=== PATIENT | male | born 1950 | race Caucasian/White ===

== ENCOUNTER → 2019-01-06 12:42 | Outpatient (CLI) | payer MEDICARE, OTHER, SELFPAY ==
--- NOTE | 2019-01-06 | DI.MRI.S_ITS ---
PROCEDURE: MR CERVICAL SPINE WO CON INDICATIONS: RADICUOPATHY TECHNIQUE: Noncontrast sagittal T1 spin echo and T2 fast spin echo, sagittal STIR, foraminal oblique sagittal T2 fast spin echo, and axial gradient echo or T2 fast spin echo through the cervical spine. COMPARISON: None. FINDINGS: Image quality: Excellent. Alignment and Curvature: There is trace anterolisthesis of C4 on C5 and trace retrolisthesis of C6 on C7. Bone Marrow: Marrow demonstrates normal overall signal. Spinal Cord: Visualized spinal cord has normal size and signal. No cerebellar tonsillar herniation. Paraspinous Soft Tissues: No paravertebral masses. Prevertebral soft tissues are normal in thickness. Discs: Moderate desiccation is present throughout the cervical spine. C2-C3: No disc bulge or spinal stenosis. Minimal to mild left foraminal narrowing with uncovertebral hypertrophy. C3-C4: Mild disc bulge with mild spinal stenosis. Moderate to severe bilateral foraminal narrowing with uncovertebral hypertrophy. C4-C5: Mild disc bulge without spinal stenosis. Mild bilateral foraminal narrowing with uncovertebral hypertrophy. C5-C6: Mild disc bulge minimal effacement of the anterior thecal sac. Mild bilateral foraminal narrowing, left greater than right with uncovertebral hypertrophy. C6-C7: Mild disc bulge with minimal effacement of the anterior thecal sac. Moderate right and mild left foraminal narrowing with uncovertebral hypertrophy. C7-T1: No disc bulge or spinal stenosis. Minimal right foraminal narrowing. IMPRESSION: 1. Multilevel disc bulges. 2. Multilevel foraminal narrowing most severe at C3-4 and C6-7 secondary to uncovertebral arthropathy. Dictated by: Catarina Peña M.D. on 01/08/2019 at 10:55 Approved by: Catarina Peña M.D. on 01/08/2019 at 11:25
== END ==
PROVIDERS: Visit Provider Physical Medicine & Rehabilitation
DX: M50.11 Cervical disc disorder with radiculopathy, high cervical region (principal); M48.02 Spinal stenosis, cervical region; M47.22 Other spondylosis with radiculopathy, cervical region
CPT/HCPCS: 72141

== ENCOUNTER → 2019-04-27 12:03 | Outpatient (CLI) | payer MEDICARE, OTHER, SELFPAY ==
--- NOTE | 2019-04-27 | DI.MRI.S_ITS ---
PROCEDURE: MR SHOULDER LT WO CON INDICATIONS: Pain in left shoulder TECHNIQUE: Noncontrast oblique coronal T2 fast spin echo with fat saturation, oblique sagittal T1 spin echo and T2 fast spin echo with fat saturation, axial T1 spin echo and T2 fast spin echo with fat saturation through the shoulder. COMPARISON: [facility] [place], CR, XR SHOULDER 2+ VIEWS LEFT, 04/10/2019, 15:06. FINDINGS: Image quality: Excellent. Rotator cuff: The supraspinatus, infraspinatus, and subscapularis tendons appear intact throughout but there is elevated fluid signal and mild irregularity along the articular surface of the lateral third of the supraspinatus rotator cuff. This is also associated with fibrous and osseous hypertrophy from the degenerated a.c. joint impinging directly against the normal course of the supraspinatus cuff. Sagittal images demonstrate no muscle atrophy. Bones and bursae: No bone marrow contusions or fractures. There is moderately severe acromioclavicular joint degeneration combining with inferior tilt of the lateral acromion to narrow the interspace through which the supraspinatus extends. Elevated fluid signal within the supraspinatus cuff at the site indicates chronic impingement The acromion demonstrates conventional anatomy, without an os acromiale. No pathologic subacromial-subdeltoid or subcoracoid bursal fluid is present. Capsule and soft tissues: In the absence of intra-articular contrast, the labrum and glenohumeral ligaments appear intact. The long head of the biceps tendon demonstrates normal location and morphology. The rotator interval appears normal, without fibrosis. The coracohumeral ligament is normal in thickness. IMPRESSION: A full-thickness rotator cuff tear is not known but a articular surface supraspinatus partial thickness tear appears present given the focal irregularity and elevated fluid signal immediately above the superior margin of the humeral head in the area of maximal chronic impingement by acromioclavicular joint degenerative hypertrophy and normal variant inferior tilt of the lateral acromion. No prior trauma found. The study is performed without intra-articular contrast but within the constraints of the current examination a labral tear is not suspected. Dictated by: Kody Butt M.D. on 04/27/2019 at 16:42 Approved by: Kody Butt M.D. on 04/27/2019 at 16:46
== END ==
PROVIDERS: Referring Provider Orthopaedic Surgery; Visit Provider Orthopaedic Surgery
DX: M25.512 Pain in left shoulder (principal); M75.112 Incomplete rotator cuff tear or rupture of left shoulder, not specified as traumatic
CPT/HCPCS: 73221

== ENCOUNTER → 2019-08-12 13:29 | Outpatient (CLI) | payer MEDICARE, OTHER, SELFPAY ==
[2019-08-13 03:49] LABS: COVID19 Sendout Not Detected (Not Detect)
== END ==
PROVIDERS: Visit Provider Physician Assistant
DX: Z01.812 Encounter for preprocedural laboratory examination (principal)
CPT/HCPCS: 87635

== ENCOUNTER 2020-12-18 11:40 | Emergency (ER) | payer MEDICARE, OTHER, SELFPAY ==
[2020-12-18] VITALS (14 sets, daily range): BP systolic 138–196; BP diastolic 77–94; PULSE 51–68; RESP 12–59; TEMP 36.9; O2SAT 92–99; BMI 28.1
[2020-12-18 12:39] LABS: Bacteria Urine None Seen; Culture Indicated Urine Cult Not Indicated; RBC Urine 5-10/HPF (0-5/HPF); Squamous Epithelial Cell Urine 0-1 /HPF (0-5/HPF); WBC Urine 0-1/HPF (0-5/HPF)
[2020-12-18 12:41] LABS: Add Manual Diff / Slide Review NO; Basophils Absolute Auto 100 /uL (0-100); Basophils Percent Auto 0.5 % (0-2); Eosinophils Absolute Auto 400 /uL (0-450); Eosinophils Percent Auto 3.2 % (2-4); Hematocrit 42.5 % (41-53); Lymphocytes Absolute Auto 4000 /uL (1100-4500); Lymphocytes Percent Auto 30.7 % (25-40); Mean Corpuscular Hemoglobin 29.2 PG (26-34); Mean Corpuscular Volume 88.5 fL (80-100); Monocytes Absolute Auto 700 /uL (0-900); Monocytes Percent Auto 5.5 % (3-14); Neutrophils Absolute Auto 7900 /uL (1500-7000); Neutrophils Percent Auto 60.1 % (50-75); Platelet Count 274 X10^3/uL (150-400); Red Cell Distribution Width 14.1 % (11.6-14.8); White Blood Cell Count 13.1 X10^3/uL (4.5-11.0)
--- NOTE | 2020-12-18 12:45 | DI.CT.S_ITS ---
PROCEDURE: CT ABDOMEN PELVIS W CON INDICATIONS: Acute onset LLQ pain c/f acute abdomen/diverticulitis TECHNIQUE: After the administration of oral and IV contrast, axial sections were acquired from the lung bases to the pubic symphysis. Coronal and sagittal reformats were performed. For radiation dose reduction, the following was used: automated exposure control, adjustment of mA and/or kV according to patient size. COMPARISON: None. FINDINGS: Image quality: Excellent. Lung bases: No pleural effusion. Bibasilar atelectasis. Heart: No significant findings. ABDOMEN: Liver: Hepatic steatosis. Gallbladder: No calcified gallstones. Biliary ducts: Unremarkable. Pancreas: No peripancreatic fluid collection. Spleen: No splenomegaly. Adrenal Glands: No nodule. Kidneys and Ureters: Right kidney inferior pole nonobstructing calculus measuring 0.5 cm. Punctate nonobstructing calculus in the left kidney. Mild left hydroureter compared to the right. Left renal calices are mildly prominent compared to the right. No right hydronephrosis. Bilateral simple appearing renal cysts. Stomach and Bowel: Stomach is not distended. Small duodenal diverticulum. No small bowel obstruction. Diverticulosis. Very subtle fat stranding at the sigmoid colon, (4/31). The appendix is not identified. Peritoneum: No abnormal intraperitoneal fluid. No free air. Ventral Wall: No hernia. Abdominal Nodes: No retroperitoneal or mesenteric adenopathy by size criteria. Vessels: Aorta and inferior vena cava are normal in size. PELVIS: Pelvic Organs: Prostatomegaly. Vasectomy clips. Bladder: Stone in the urinary bladder near the left UVJ measuring 0.3 cm, (2/81). Pelvic Nodes: No enlarged lymph nodes. Miscellaneous: No inguinal hernias are seen. Bones: Unremarkable. IMPRESSION: 1. There is a kidney stone at the left UVJ passing into the urinary bladder measuring 0.3 cm. Mild left hydroureter. This is favored as the source of abdominal pain. 2. Diverticulosis with subtle stranding near the sigmoid colon raises the possibility of early or mild diverticulosis. 3. Additional bilateral nonobstructing kidney stones. Comment: Findings were discussed with Dr. Maurer at the time of dictation. Dictated by: Frank Nelson M.D. on 12/18/2020 at 13:48 Approved by: Frank Nelson M.D. on 12/18/2020 at 14:01
--- NOTE | 2020-12-18 12:49 | ED_ITS ---
HPI - Abdominal Pain <PARAG Trimble - Last Filed: 12/18/20 20:44> General Chief Complaint: Abdominal Pain Stated Complaint: left side abd pain Time Seen by Provider: 12/18/20 12:38 Source: patient Mode of arrival: Family Vehicle Limitations: no limitations History of Present Illness HPI narrative: 70-year-old male with history hypertension, PAUL, and hypercholesterolemia presents to the emergency department today for acute onset of lower left quadrant pain with spasms. He states this is the 1st time this has happened, he has no history of any abdominal surgeries, he denies nausea or vomiting, he reports usually he has 3-4 numbed bowel movements each day today, he will only have 1, he says that his pain is worst when he is straining up to a 10/10, when the spasm resolves it goes down to a 5/10. He denies any recent fever, diarrhea, he states he feels constipated, and that the pain is worse if you push on that area, he denies any radiation of the pain to elsewhere. He d enies any chest pain, back pain, tearing sensation, dizziness, shortness of breath or feeling faint. He denies any dysuria or urinary retention. He reports that he ate [employer] balls last night for dinner. He denies any history of cardiac disease, and he is not a smoker Related Data Home Medications Medication Instructions Recorded Confirmed ASPIRIN (Aspirin Low Dose) 81 mg PO Q DAY #0 02/06/10 MULTIVITAMIN (Multivitamin 1 cap PO EVERY DAY #0 02/06/10 -) Simvastatin (Zocor) 20 mg PO HS #0 02/06/10 Ascorbic Acid/Bioflavonoid 1 tab PO QDAY #0 10/23/10 (#VITAMIN C) [VITAMIN E] 1 tab PO QDAY #0 10/23/10 allopurinol 300 mg tablet 300 mg PO QDAY #30 tab 10/22/15 amlodipine 5 mg tablet (Norvasc) 5 mg PO QDAY #0 tab 10/22/15 diphenhydramine 25 1 tab PO HSP PRN #0 tab 10/22/15 mg-acetaminophen 500 mg tablet (Tylenol PM Extra Strength) docusate sodium 250 mg capsule 250 mg PO BID #0 cap 10/22/15 hydrochlorothiazide 25 mg tablet 25 mg PO QDAY #0 tab 10/22/15 ibuprofen 800 mg tablet 800 mg PO PRN PRN #0 10/22/15 Previous Rx's Medication Instructions Recorded Flomax 0.4 mg capsule (tamsulosin) 0.4 mg PO DAILY #10 cap NS 12/18/20 ciprofloxacin HCl 500 mg tablet 500 mg PO BID 10 Days #20 tab 12/18/20 (Cipro) metronidazole 500 mg tablet 500 mg PO TID 10 Days #30 tab 12/18/20 (Flagyl) oxycodone-acetaminophen 5 mg-325 1 tab PO TID PRN #14 tab 12/18/20 mg tablet (Percocet) Allergies Allergy/AdvReac Type Severity Reaction Status Date / Time No Known Drug Allergies Allergy Verified 12/18/20 12:51 Review of Systems <PARAG Trimble - Last Filed: 12/18/20 20:44> Review of Systems Narrative: General: denies fever, chills Head/Neck: denies headache, neck pain Eyes: denies visual changes, eye pain Cardio: denies chest pain, palpitations Respiratory: denies shortness of breath, cough GI: Endorses lower left quadrant abdominal pain with spasms, he denies nausea, vomiting, or diarrhea, states he feels constipated : denies dysuria, hematuria MSK: denies joint pain, muscle weakness Skin: denies rash, itching Neuro: denies numbness, tingling Patient History <PARAG Trimble - Last Filed: 12/18/20 20:44> Surgical History History of knee replacement Social History Smoking Status: Former smoker Smoking Status: Former smoker tobacco type: cigarettes alcohol intake frequency: 0-2 drinks per day Substance Use Type: does not use Exam <PARAG Trimble - Last Filed: 12/18/20 20:44> Narrative Exam Narrative: Independently reviewed vitals signs and nursing notes. General: Awake, alert, nontoxic, no cardiorespiratory distress Head/Neck: Atraumatic, neck full range of motion Eyes: EOMI, conjunctiva normal Nose: nares patent, no rhinorrhea Mouth/Throat: moist mucus membranes, posterior pharynx normal, no oral lesions Cardio: Regular rate and rhythm, no peripheral edema Respiratory: respirations unlabored without wheezing, stridor, or rales. No retr actions. GI: Abdomen guarded, but tenderness to palpation over lower left quadrant, no masses palpated. MSK: Moves all extremities, neurovascularly intact Skin: Normal capillary refill, no rash Neuro: Normal speech and cognition, normal gait Initial Vital Signs Initial Vital Signs: Vital Signs Pulse Rate 54 L 12/18/20 12:05 Pulse Oximetry 96 12/18/20 12:05 <Maru Mckeon MD - Last Filed: 12/19/20 07:39> Initial Vital Signs Initial Vital Signs: Vital Signs Pulse Rate 54 L 12/18/20 12:05 Pulse Oximetry 96 12/18/20 12:05 Course <PARAG Trimble - Last Filed: 12/18/20 20:44> Orders Ordered: Discontinued Medications Hydromorphone HCl (Hydromorphone 0.5 Mg Inj) 0.5 mg IV NOW ONE Stop: 12/18/20 12:45 Last Admin: 12/18/20 13:02 Dose: 0.5 mg Documented by: RADAMES Hydromorphone HCl (Hydromorphone 0.5 Mg Inj) 0.5 mg IV NOW ONE Stop: 12/18/20 13:44 Last Admin: 12/18/20 13:47 Dose: 0.5 mg Documented by: RADAMES Hydromorphone HCl (Hydromorphone 0.5 Mg Inj) 0.5 mg IV PRN PRN PRN Reason: Pain, Severe (7-10) Sodium Chloride (Normal Saline 0.9%) 1,000 mls @ 150 mls/hr IV CONT OLEGARIO Last Infusion: 12/18/20 15:56 Dose: 0 mls/hr Documented by: Admin: 12/18/20 13:02 Dose: 150 mls/hr Documented by: RADAMES Ondansetron HCl (Ondansetron 4 Mg/2 Ml Inj) 4 mg IV NOW ONE Stop: 12/18/20 13:10 Last Admin: 12/18/20 13:13 Dose: 4 mg Documented by: RADAMES Vital Signs Vital signs: Vital Signs - 8 hr 12/18/20 13:06 12/18/20 13:07 12/18/20 13:30 Pulse Rate 51 L 51 L 53 L Respiratory Rate 13 Blood Pressure 160/77 H 155/80 H Pulse Oximetry 98 97 96 12/18/20 13:51 12/18/20 13:52 12/18/20 14:00 Pulse Rate 62 57 L 68 Respiratory Rate 24 27 H 21 Blood Pressure 196/94 H 171/88 H Pulse Oximetry 99 98 92 12/18/20 14:30 12/18/20 15:00 12/18/20 15:56 Pulse Rate 55 L 54 L Respiratory Rate 14 59 H Blood Pressure 147/84 H 138/77 151/81 H Pulse Oximetry 99 95 97 <Maru Mckeon MD - Last Filed: 12/19/20 07:39> Orders Ordered: Discontinued Medications Hydromorphone HCl (Hydromorphone 0.5 Mg Inj) 0.5 mg IV NOW ONE Stop: 12/18/20 12:45 Last Admin: 12/18/20 13:02 Dose: 0.5 mg Documented by: RADAMES Hydromorphone HCl (Hydromorphone 0.5 Mg Inj) 0.5 mg IV NOW ONE Stop: 12/18/20 13:44 Last Admin: 12/18/20 13:47 Dose: 0.5 mg Documented by: RADAMES Hydromorphone HCl (Hydromorphone 0.5 Mg Inj) 0.5 mg IV PRN PRN PRN Reason: Pain, Severe (7-10) Sodium Chloride (Normal Saline 0.9%) 1,000 mls @ 150 mls/hr IV CONT OLEGARIO Last Infusion: 12/18/20 15:56 Dose: 0 mls/hr Documented by: Admin: 12/18/20 13:02 Dose: 150 mls/hr Documented by: RADAMES Ondansetron HCl (Ondansetron 4 Mg/2 Ml Inj) 4 mg IV NOW ONE Stop: 12/18/20 13:10 Last Admin: 12/18/20 13:13 Dose: 4 mg Documented by: RADAMES Vital Signs Vital signs: Vital Signs - 8 hr 12/18/20 13:06 12/18/20 13:07 12/18/20 13:30 Pulse Rate 51 L 51 L 53 L Respiratory Rate 13 Blood Pressure 160/77 H 155/80 H Pulse Oximetry 98 97 96 12/18/20 13:51 12/18/20 13:52 12/18/20 14:00 Pulse Rate 62 57 L 68 Respiratory Rate 24 27 H 21 Blood Pressure 196/94 H 171/88 H Pulse Oximetry 99 98 92 12/18/20 14:30 12/18/20 15:00 12/18/20 15:56 Pulse Rate 55 L 54 L Respiratory Rate 14 59 H Blood Pressure 147/84 H 138/77 151/81 H Pulse Oximetry 99 95 97 MDM - Abdominal Pain <KRUPA TrimbleP - Last Filed: 12/18/20 20:44> Lab Data Result diagrams: 12/18/20 12:33 12/18/20 12:33 Labs: Lab Results 12/18/20 12/18/20 12/18/20 Range/Units 12:17 12:33 12:33 WBC 13.1 H (4.5-11.0) X10^3/uL RBC 4.80 (4.5-5.9) X10^6/uL Hgb 14.0 (13.5-17.5) g/dL Hct 42.5 (41-53) % MCV 88.5 (80-100) fL MCH 29.2 (26-34) PG MCHC 33.0 (30-36) % RDW 14.1 (11.6-14.8) % Plt Count 274 (150-400) X10^3/uL Neut % (Auto) 60.1 (50-75) % Lymph % (Auto) 30.7 (25-40) % [place] % (Auto) 5.5 (3-14) % Eos % (Auto) 3.2 (2-4) % Baso % (Auto) 0.5 (0-2) % Neut # (Auto) 7900 H (6534-1834) /uL Lymph # (Auto) 4000 (0813-2752) /uL [place] # (Auto) 700 (0-900) /uL Eos # (Auto) 400 (0-450) /uL Baso # (Auto) 100 (0-100) /uL Sodium 139 (137-145) mmol/L Potassium 4.0 (3.4-5.1) mmol/L Chloride 101 (98-107) mmol/L Carbon Dioxide 31 (22-32) mmol/L BUN 22 H (9-20) mg/dL Creatinine 0.82 (0.66-1.25) mg/dL Estimated GFR > 60.0 (>60) mL/min BUN/Creatinine Ratio 26.8 H (6-22) Glucose 136 H (80-110) mg/dL Lactate (0.7-2.1) mmol/L Calcium 9.2 (8.4-10.2) mg/dL Total Bilirubin 0.8 (0.2-1.3) mg/dL AST 29 (17-59) IU/L ALT 21 (<50) IU/L Alkaline Phosphatase 72 (38-126) U/L Total Creatine Kinase (55-170) U/L CK-MB (CK-2) CK-MB (CK-2) Rel Index Troponin I (0.01-0.034) ng/mL Total Protein 7.7 (6.3-8.2) g/dL Albumin 4.2 (3.5-5.0) g/dL Globulin 3.5 (1.7-4.1) g/dL Albumin/Globulin Ratio 1.2 (1.0-2.8) Lipase 106 (23-300) U/L Urine RBC 5-10/hpf H (0-5/HPF) Urine WBC 0-1/hpf (0-5/HPF) Ur Squamous Epith Cells 0-1 /hpf (0-5/HPF) Urine Bacteria None seen (None) Ur Culture Indicated? Cult not indicated 12/18/20 12/18/20 Range/Units 12:33 12:45 WBC (4.5-11.0) X10^3/uL RBC (4.5-5.9) X10^6/uL Hgb (13.5-17.5) g/dL Hct (41-53) % MCV (80-100) fL MCH (26-34) PG MCHC (30-36) % RDW (11.6-14.8) % Plt Count (150-400) X10^3/uL Neut % (Auto) (50-75) % Lymph % (Auto) (25-40) % [place] % (Auto) (3-14) % Eos % (Auto) (2-4) % Baso % (Auto) (0-2) % Neut # (Auto) (6146-2303) /uL Lymph # (Auto) (5914-3743) /uL [place] # (Auto) (0-900) /uL Eos # (Auto) (0-450) /uL Baso # (Auto) (0-100) /uL Sodium (137-145) mmol/L Potassium (3.4-5.1) mmol/L Chloride (98-107) mmol/L Carbon Dioxide (22-32) mmol/L BUN (9-20) mg/dL Creatinine (0.66-1.25) mg/dL Estimated GFR (>60) mL/min BUN/Creatinine Ratio (6-22) Glucose (80-110) mg/dL Lactate 1.4 (0.7-2.1) mmol/L Calcium (8.4-10.2) mg/dL Total Bilirubin (0.2-1.3) mg/dL AST (17-59) IU/L ALT (<50) IU/L Alkaline Phosphatase (38-126) U/L Total Creatine Kinase 52 L (55-170) U/L CK-MB (CK-2) TNP CK-MB (CK-2) Rel Index TNP Troponin I < 0.012 (0.01-0.034) ng/mL Total Protein (6.3-8.2) g/dL Albumin (3.5-5.0) g/dL Globulin (1.7-4.1) g/dL Albumin/Globulin Ratio (1.0-2.8) Lipase (23-300) U/L Urine RBC (0-5/HPF) Urine WBC (0-5/HPF) Ur Squamous Epith Cells (0-5/HPF) Urine Bacteria (None) Ur Culture Indicated? Point of care testing: Urine Dip Bedside Urine Glucose Negative Bedside Urine Bilirubin + 1 Bedside Urine Ketone - Negative Urine Specific Coleman 1.030 Bedside Urine Occult Blood +++ Bedside Urine pH 6.0 Bedside Urine Protein + 30 Bedside Urine Urobilinogen - Negative Bedside Urine Nitrite - Negative Bedside Urine Leukocytes - Negative Esterase Imaging Data CT scan - abdomen/pelvis: Radiologist's Impression: PROCEDURE:? CT ABDOMEN PELVIS W CON ? INDICATIONS:? Acute onset LLQ pain c/f acute abdomen/diverticulitis ? TECHNIQUE:? After the administration of oral and IV contrast, axial sections were acquired from the lung bases to the pubic symphysis.? Coronal and sagittal reformats were performed.? For radiation dose reduction, the following was used:? automated exposure control, adjustment of mA and/or kV according to patient size. ? COMPARISON:? None. ? FINDINGS:? Image quality:? Excellent.? ? Lung bases:? No pleural effusion.? Bibasilar atelectasis.? ? Heart:? No significant findings. ? ? ABDOMEN: Liver:? Hepatic steatosis.? ? Gallbladder:? No calcified gallstones. Biliary ducts:? Unremarkable.? ? Pancreas:? No peripancreatic fluid collection.? ? Spleen:? No splenomegaly.? ? Adrenal Glands:? No nodule.? ? Kidneys and Ureters:? Right kidney inferior pole nonobstructing calculus measuring 0.5 cm.? Punctate nonobstructing calculus in the left kidney.? Mild left hydroureter compared to the right.? Left renal calices are mildly prominent compared to the right.? No right hydronephrosis.? Bilateral simple appearing renal cysts.? ? ? Stomach and Bowel:? Stomach is not distended.? Small duodenal diverticulum.? No small bowel obstruction.? Diverticulosis.? Very subtle fat stranding at the sigmoid colon, ().? The appendix is not identified. Peritoneum:? No abnormal intraperitoneal fluid.? No free air.? ? Ventral Wall: ? No hernia.? Abdominal Nodes:? No retroperitoneal or mesenteric adenopathy by size criteria.? Vessels:? Aorta and inferior vena cava are normal in size.? ? PELVIS: Pelvic Organs:? Prostatomegaly.? Vasectomy clips.? ? Bladder:? Stone in the urinary bladder near the left UVJ measuring 0.3 cm, (). Pelvic Nodes: No enlarged lymph nodes.? Miscellaneous: No inguinal hernias are seen. ? ? ? Bones:? Unremarkable.? IMPRESSION:? 1. There is a kidney stone at the left UVJ passing into the urinary bladder measuring 0.3 cm.? Mild left hydroureter.? This is favored as the source of abdominal pain.? ? 2. Diverticulosis with subtle stranding near the sigmoid colon raises the possibility of early or mild diverticulosis. ? 3. Additional bilateral nonobstructing kidney stones. ? Comment: Findings were discussed with Dr. Maurer at the time of dictation. [facility] Narrative Medical decision making narrative: 70-year-old male presents to the emergency de partment for lower left quadrant pain that came on sharp and sudden driving in his car today. He is afebrile, has not had abdominal pain recently, denies any dysuria, no melena, endorses constipation this morning. He appeared to be in very significant pain, which was relieved with some dilaudid, CT abdomen pelvis showed a 3 mm kidney stone at the left UVJ passing into the urinary bladder with mild associated left hydroureter. Second diagnosis of mild diverticulosis with subtle stranding viewed near the sigmoid colon suggesting mild diverticulitis. He does have additional bilateral nonobstructing kidney stones. Lab work pertinent for WBC of 13.1, with RBCs present in his UA. Troponin was negative, 12 lead was normal sinus rhythm without ST changes. Patient came back from CT with 10/10 pain and was screaming. This was most likely his kidney stone passing out of the UVJ and into the bladder. He received 2 more doses of Dilaudid with relief. He was discharged on Flomax, Ciprofloxacin, Flagyl, and Percocet for pain. He appeared much more comfortable, received 1 L of IV fluids, and was able to ambulate at discharge. Differential includes pyelonephritis, infected kidney stone, and prostatitis. He is appropriate and amenable to discharge home. Vital signs are stable on repeat examination is unremarkable. Patient has been informed of results. Patient has been given strict return to ER precautions for any new or worsening symptoms. Patient understands to follow up closely with outpatient providers as instructed. Patient understands plan and agrees to discharge home. All questions and concerns answered at this time. <Maru Mckeon MD - Last Filed: 12/19/20 07:39> Lab Data Labs: Lab Results 12/18/20 12/18/20 12/18/20 Range/Units 12:17 12:33 12:33 WBC 13.1 H (4.5-11.0) X10^3/uL RBC 4.80 (4.5-5.9) X10^6/uL Hgb 14.0 (13.5-17.5) g/dL Hct 42.5 (41-53) % MCV 88.5 (80-100) fL MCH 29.2 (26-34) PG MCHC 33.0 (30-36) % RDW 14.1 (11.6-14.8) % Plt Count 274 (150-400) X10^3/uL Neut % (Auto) 60.1 (50-75) % Lymph % (Auto) 30.7 (25-40) % [place] % (Auto) 5.5 (3-14) % Eos % (Auto) 3.2 (2-4) % Baso % (Auto) 0.5 (0-2) % Neut # (Auto) 7900 H (5635-3123) /uL Lymph # (Auto) 4000 (8479-1051) /uL [place] # (Auto) 700 (0-900) /uL Eos # (Auto) 400 (0-450) /uL Baso # (Auto) 100 (0-100) /uL Sodium 139 (137-145) mmol/L Potassium 4.0 (3.4-5.1) mmol/L Chloride 101 (98-107) mmol/L Carbon Dioxide 31 (22-32) mmol/L BUN 22 H (9-20) mg/dL Creatinine 0.82 (0.66-1.25) mg/dL Estimated GFR > 60.0 (>60) mL/min BUN/Creatinine Ratio 26.8 H (6-22) Glucose 136 H (80-110) mg/dL Lactate (0.7-2.1) mmol/L Calcium 9.2 (8.4-10.2) mg/dL Total Bilirubin 0.8 (0.2-1.3) mg/dL AST 29 (17-59) IU/L ALT 21 (<50) IU/L Alkaline Phosphatase 72 (38-126) U/L Total Creatine Kinase (55-170) U/L CK-MB (CK-2) CK-MB (CK-2) Rel Index Troponin I (0.01-0.034) ng/mL Total Protein 7.7 (6.3-8.2) g/dL Albumin 4.2 (3.5-5.0) g/dL Globulin 3.5 (1.7-4.1) g/dL Albumin/Globulin Ratio 1.2 (1.0-2.8) Lipase 106 (23-300) U/L Urine RBC 5-10/hpf H (0-5/HPF) Urine WBC 0-1/hpf (0-5/HPF) Ur Squamous Epith Cells 0-1 /hpf (0-5/HPF) Urine Bacteria None seen (None) Ur Culture Indicated? Cult not indicated 12/18/20 12/18/20 Range/Units 12:33 12:45 WBC (4.5-11.0) X10^3/uL RBC (4.5-5.9) X10^6/uL Hgb (13.5-17.5) g/dL Hct (41-53) % MCV (80-100) fL MCH (26-34) PG MCHC (30-36) % RDW (11.6-14.8) % Plt Count (150-400) X10^3/uL Neut % (Auto) (50-75) % Lymph % (Auto) (25-40) % [place] % (Auto) (3-14) % Eos % (Auto) (2-4) % Baso % (Auto) (0-2) % Neut # (Auto) (6614-6312) /uL Lymph # (Auto) (7870-2546) /uL [place] # (Auto) (0-900) /uL Eos # (Auto) (0-450) /uL Baso # (Auto) (0-100) /uL Sodium (137-145) mmol/L Potassium (3.4-5.1) mmol/L Chloride (98-107) mmol/L Carbon Dioxide (22-32) mmol/L BUN (9-20) mg/dL Creatinine (0.66-1.25) mg/dL Estimated GFR (>60) mL/min BUN/Creatinine Ratio (6-22) Glucose (80-110) mg/dL Lactate 1.4 (0.7-2.1) mmol/L Calcium (8.4-10.2) mg/dL Total Bilirubin (0.2-1.3) mg/dL AST (17-59) IU/L ALT (<50) IU/L Alkaline Phosphatase (38-126) U/L Total Creatine Kinase 52 L (55-170) U/L CK-MB (CK-2) TNP CK-MB (CK-2) Rel Index TNP Troponin I < 0.012 (0.01-0.034) ng/mL Total Protein (6.3-8.2) g/dL Albumin (3.5-5.0) g/dL Globulin (1.7-4.1) g/dL Albumin/Globulin Ratio (1.0-2.8) Lipase (23-300) U/L Urine RBC (0-5/HPF) Urine WBC (0-5/HPF) Ur Squamous Epith Cells (0-5/HPF) Urine Bacteria (None) Ur Culture Indicated? Point of care testing: Urine Dip Bedside Urine Glucose Negative Bedside Urine Bilirubin + 1 Bedside Urine Ketone - Negative Urine Specific [place] 1.030 Bedside Urine Occult Blood +++ Bedside Urine pH 6.0 Bedside Urine Protein + 30 Bedside Urine Urobilinogen - Negative Bedside Urine Nitrite - Negative Bedside Urine Leukocytes - Negative Esterase Discharge Plan Departure Patient Disposition: Home Clinical Impression: Diverticulitis, Calculus of kidney Instructions: DI for Kidney Stones, DI for Diverticulitis Activity Restrictions/Additional Instructions: *You have been diagnosed with a left sided kidney stone, and mild diverticulitis. Please see below these instructions diet options for diverticul itis and kidney stones to help prevent this from happening in the future. Please take these medications as prescribed, please return to the emergency department if you develop any new or worsening symptoms, fever, pain that you cannot manage at. Please follow-up with your primary care provider in 1 week for follow-up, I will send this information over to Daria Lal and hopefully she can access it. *What to do: *Please continue to take your regular medications as directed. [x ] New medication prescriptions sent to your pharmacy: [[facility] pharmacy ] [ ] New medication written as a paper prescription [ ] No new medications given *Please follow up with your primary care provider in 2-3 days, call for an appointment. Let them know you were seen in the Emergency Department and that we ask that you be seen in follow up. We will electronically transmit a record of today's note if your PCP is in our system *If you do not have a primary care provider please contact the [facility] Resource line at [phone]. They will ask some questions about your medical history and help get you set up with a doctor in the community. *Return to Emergency Department if you should have any new, worsening or concerning symptoms, such as [fever greater than 101F, chills, worsening pain, persistent vomiting or other bothersome symptoms] What kind of diet plan is recommended to prevent stones? There is no single diet plan for stone prevention. Most diet recommendations are based on stone types and individualized for each person. ? 1. Calcium Oxalate Stones: most common stones ? Oxalate is naturally found in many foods, including fruits and vegetables, nuts and seeds, grains, legumes, and even chocolate and tea. Some examples of foods that have high levels of oxalate include peanuts, rhubarb, spinach, beets, Polish chard, chocolate and sweet potatoes. Limiting intake of these foods may be beneficial for people who form calcium oxalate stones which is the leading type of kidney stone. ? Eat and drink calcium foods such as milk, yogurt, and some cheese and oxalate- rich foods together during a meal. The oxalate and calcium from the foods are more likely to bind to one another in the stomach and intestines before entering the kidneys. This will make it less likely that kidney stones will form. ? Calcium is not the enemy but it tends to get a bad rap! This is most likely due to its name and misunderstanding that calcium is the main cause in calcium- oxalate stones. A diet low in calcium actually increases your chances of developing kidney stones. ? Don't reduce the calcium in your diet. Work to cut back on the sodium in your diet and to pair calcium-rich foods with oxalate-rich foods. The recommended calcium intake to prevent calcium stones is 0330-5973 mg per day (you can eat 3 servings of dairy products with meals to meet the recommendation). ? Extra sodium causes you to lose more calcium in your urine. Sodium and calcium share the same transport in the kidney so if you eat high sodium foods it will increase calcium leakage in the urine. Therefore, a high sodium diet can increase your chances for developing another stone. There are many sources of hidden sodium such as canned or commercially processed foods as well as restaurant-prepared and fast foods. ? You can lower your sodium intake by choosing fresh low sodium foods which can help to lower calcium leakage in the urine and will also help with blood pressure control if you have high blood pressure. ? 2. Uric acid stones: another common stone ? Red meat, organ meats, and shellfish have high amounts of a natural chemical compound known as purines. High purine intake leads to a higher production of uric acid and a larger acid load for the kidneys to excrete. Higher uric acid excretion leads to more acidic urine. The high acid concentration of the urine makes it easier for uric acid stones to form. ? To prevent uric acid stones, cut down on high-purine foods such as red meat, organ meats, beer/alcoholic beverages, meat-based gravies, sardines, anchovies and shellfish. Follow a healthy diet plan that has mostly vegetables and fruits, whole grains, and low-fat dairy products. Limit sugar-sweetened foods and drinks, especially those that have high fructose corn syrup. Limit alcohol b ecause it can increase uric acid levels in the blood and avoid short term diets for the same reason. Decreasing animal-based protein and eating more fruits and vegetables will help decrease urine acidity and this may help reduce the chance for uric acid stone formation. Will it help or hurt to take a vitamin or mineral supplement? The B vitamins which include thiamine, riboflavin, niacin, B6 and B12 have not been shown to be harmful to people with kidney stones. In fact, some studies have shown that B6 may actually help people with high urine oxalate. However, it is best to check with your healthcare professional or dietitian for advice on the use of vitamin C, vitamin D, fish liver oils or other mineral supplements containing calcium since some supplements can increase the chances of stone formation in some individuals. Diet Recommendations for Kidney Stones General Recommendations * Drink plenty of fluid: 2-3 quarts/day * This includes any type of fluid such as water, coffee and lemonade which have been shown to have a beneficial effect with the exception of grapefruit juice and soda. * This will help produce less concentrated urine and ensure a good urine volume of at least?2.5L/day * Limit foods with high oxalate content * Spinach, many berries, chocolate, wheat bran, nuts, beets, tea and rhubarb should be eliminated from your diet intake * Eat enough dietary calcium * Three servings of dairy per day will help lower the risk of calcium stone formation. Eat with meals. * Avoid extra calcium supplements * Calcium supplements should be individualized by your physician and registered kidney dietitian * Eat a moderate amount of protein * High protein intakes will cause the kidneys to excrete more calcium therefore this may cause more stones to form in the kidney * Avoid high salt intake * High sodium intake increases calcium in the urine which increases the chances of developing stones * Low salt diet is also important to control blood pressure. * Avoid high doses of vitamin C supplements * It is recommend to take 60mg/day of vitamin C based on the [place] Dietary Reference Intake * Excess amounts of 1000mg/day or more may produce more oxalate in the body Purpose Nutrition therapy for diverticulitis is a temporary measure to give your digestive system a chance to rest. Eat small amounts until bleeding and diarrhea subside. Diet details Your diet starts with only clear liquids for a few days. Examples of items allowed on a clear liquid diet include: * Broth * Fruit juices without pulp, such as apple juice * Ice chips * Ice pops without bits of fruit or fruit pulp * Gelatin * Water * Tea or coffee without cream As you start feeling better, your doctor will recommend that you slowly add low- fiber foods. Examples of low-fiber foods include: * Canned or cooked fruits without skin or seeds * Canned or cooked vegetables such as green beans, carrots and potatoes (without the skin) * Eggs, fish and poultry * Refined white bread * Fruit and vegetable juice with no pulp * Low-fiber cereals * Milk, yogurt and cheese * White rice, pasta and noodles Results You should feel better within two or three days of starting the diet and antibiotics. If you haven't started feeling better by then, call your doctor. Also contact your doctor if: * You develop a fever * Your abdominal pain is worsening * You're unable to keep clear liquids down These may indicate a complication that requires hospitalization. Risks Nutrition therapy for diverticulitis has few risks. However, continuing a clear liquid diet for more than a few days can lead to weakness and other complications, since it doesn't provide enough of the nutrients your body needs. For this reason, your doctor will want you to transition back to a normal diet that includes foods with fiber as soon as you can tolerate it. Prescriptions: New tamsulosin [Flomax] 0.4 mg capsule 0.4 mg PO DAILY Qty: 10 RF: 0 ciprofloxacin HCl [Cipro] 500 mg tablet 500 mg PO BID 10 Days Qty: 20 RF: 0 metronidazole [Flagyl] 500 mg tablet 500 mg PO TID 10 Days Qty: 30 RF: 0 oxycodone-acetaminophen [Percocet] 5-325 mg tablet 1 tab PO TID PRN (Reason: pain) Qty: 14 RF: 0 No Action ASPIRIN (Aspirin Low Dose) 81 mg PO Q DAY Qty: 0 RF: 0 MULTIVITAMIN (Multivitamin -) 1 cap PO EVERY DAY Qty: 0 RF: 0 Simvastatin (Zocor) 20 mg PO HS Qty: 0 RF: 0 Ascorbic Acid/Bioflavonoid (#VITAMIN C) 1 tab PO QDAY Qty: 0 RF: 0 [VITAMIN E] 1 tab PO QDAY Qty: 0 RF: 0 amlodipine [Norvasc] 5 MG tablet 5 mg PO QDAY Qty: 0 RF: 0 ibuprofen 800 MG tablet 800 mg PO PRN PRNQty: 0 RF: 0 allopurinol 300 MG tablet 300 mg PO QDAY Qty: 30 RF: 0 docusate sodium 250 MG capsule 250 mg PO BID Qty: 0 RF: 0 diphenhydramine-acetaminophen [Tylenol PM Extra Strength] 500 MG/25 MG tablet 1 tab PO HSP PRNQty: 0 RF: 0 hydrochlorothiazide 25 MG tablet 25 mg PO QDAY Qty: 0 RF: 0 <Maru Mckeon MD - Last Filed: 12/19/20 07:39> Cosign ED Attending Cosignature Attestation: I was immediately available in the department for consultation throughout this patient's visit. I agree with documentation as above. Maru Mckeon MD
[2020-12-18 12:53] LABS: Alanine Aminotransferase 21 IU/L (<50); Albumin 4.2 g/dL (3.5-5.0); Albumin Globulin Ratio 1.2 (1.0-2.8); Alkaline Phosphatase 72 U/L (38-126); Aspartate Aminotransferase 29 IU/L (17-59); BUN Creatinine Ratio 26.8 (6-22); Bilirubin Total 0.8 mg/dL (0.2-1.3); Blood Urea Nitrogen 22 mg/dL (9-20); Calcium 9.2 mg/dL (8.4-10.2); Carbon Dioxide 31 mmol/L (22-32); Chloride 101 mmol/L (98-107); Estimated Glomerular Filt Rate > 60.0 mL/min (>60); Globulin 3.5 g/dL (1.7-4.1); Glucose 136 mg/dL (80-110); HEMOLYSIS 15 (0-50); Lipase 106 U/L (23-300); Sodium 139 mmol/L (137-145); Total Protein 7.7 g/dL (6.3-8.2)
[2020-12-18] MEDS: SODIUM CHLORIDE 0.9% 1,000 ML 150 ML IV (13:02)
[2020-12-18] MEDS: HYDROMORPHONE 0.5 MG INJ IV ×2 (13:02→13:47)
[2020-12-18] MEDS: ONDANSETRON 4 MG/2 ML INJ IV (13:13)
[2020-12-18 13:27] LABS: Creatine Kinase 52 U/L (55-170)
[2020-12-18 13:38] LABS: Troponin I < 0.012 ng/mL (0.01-0.034)
[2020-12-18 14:00] LABS: Lactate (Lactic Acid) 1.4 mmol/L (0.7-2.1)
--- NOTE | 2020-12-22 11:53 | PC.NURSE ---
Pt called stating the [facility] pharmacy where meds were sent was not open r/t renovations. Called in Flomax, Flagyl & Cipro to [facility] at pt request. Called pt back and updated that I was unable to call in controlled substance but discussed how it would be ready at [facility] when they reopened. Encouraged to pt return for any needs, concerns, worsening of symptoms.
== END 2020-12-18 15:57 | disposition home or self-care (01) ==
PROVIDERS: Emergency Medicine; Emergency Provider Nurse Practitioner Critical Care Medicine
DX: K57.92 Diverticulitis of intestine, part unspecified, without perforation or abscess without bleeding (principal); N20.0 Calculus of kidney; K59.00 Constipation, unspecified; R10.32 Left lower quadrant pain
CPT/HCPCS: 36415; 74177; 80053; 81003; 81015; 82550; 83605; 83690; 84484; 85025; 93005; 93010; 96361; 96374; 96375; 96376; 99284; J1170; J2405

== ENCOUNTER → 2021-02-16 09:31 | Outpatient (CLI) | payer MEDICARE, OTHER, SELFPAY ==
[2021-02-16 11:17] LABS: COVID19 -Nasal RAPID Negative (Negative)
== END ==
PROVIDERS: Visit Provider Surgery
DX: Z20.822 Contact with and (suspected) exposure to COVID-19 (principal); Z01.812 Encounter for preprocedural laboratory examination
CPT/HCPCS: 87635; C9803

== ENCOUNTER 2021-02-19 13:00 | Day surgery (SDC) | payer MEDICARE, OTHER, SELFPAY ==
[2021-02-19] VITALS (7 sets, daily range): BP systolic 127–166; BP diastolic 75–90; PULSE 61–94; RESP 12–18; TEMP 36.1–36.8; O2SAT 96–98; BMI 29.7
[2021-02-19] MEDS: LACTATED RINGERS 1,000 ML 200 ML IV (13:47)
--- NOTE | 2021-02-19 14:22 | P.HP_ITS ---
History of Present Illness History of Present Illness Date Patient Seen: 02/19/21 Time Patient Seen: 14:22 Chief complaint: DX COLONOSCOPY Narrative: The patient presents for colorectal sreening. Previous colonoscopy 9 years ago which was normal. He had a recent bout uncomplicated diverticulitis 3 months ago which is entirely resolved. No abdominal pain or fever. No personal or family history of colon cancer. . Patient History Surgical History History of knee replacement Family & Social History Social History: household members spouse Tobacco & Substance use: Smoking Status Former smoker alcohol intake frequency 0-2 drinks per day Substance Use Type does not use Meds Home Medications and Allergies Home Medications Medication Instructions Recorded Confirmed Type MULTIVITAMIN (Multivitamin 1 cap PO EVERY DAY #0 02/06/10 02/19/21 History -) Simvastatin (Zocor) 20 mg PO HS #0 02/06/10 History Ascorbic Acid/Bioflavonoid 1 tab PO QDAY #0 10/23/10 02/19/21 History (#VITAMIN C) [VITAMIN E] 1 tab PO QDAY #0 10/23/10 History allopurinol 300 mg tablet 300 mg PO QDAY #30 tab 10/22/15 02/19/21 History diphenhydramine 25 1 tab PO HSP PRN #0 tab 10/22/15 02/19/21 History mg-acetaminophen 500 mg tablet (Tylenol PM Extra Strength) docusate sodium 250 mg capsule 250 mg PO BID #0 cap 10/22/15 02/19/21 History hydrochlorothiazide 25 mg tablet 25 mg PO QDAY #0 tab 10/22/15 02/19/21 History ibuprofen 800 mg tablet 800 mg PO PRN PRN #0 10/22/15 02/19/21 History Allergies Allergy/AdvReac Type Severity Reaction Status Date / Time No Known Drug Allergies Allergy Verified 02/19/21 13:29 Exam Vital Signs (past 8 hours): - 02/19/21 13:35 Temperature 98.2 F Pulse Rate 94 H Respiratory Rate 18 Blood Pressure 166/90 H Pulse Oximetry 98 Oxygen Delivery Method Room Air Narrative Exam Narrative: Constitutional-he is oriented to person, place and time. No apparent distress Cardiovascular- regular rate, no peripheral edema Pulmonary-unlabored respiratory effort, no audible wheezing Abdominal-soft, non-tender, non-distended Assessment & Plan Assessment and plan (1) Diverticulitis: Status: Acute Assessment & Plan narrative: 71 year old man with uncomplicated diverticulitis 3 months ago here for a diagnostic colonoscopy. Technical details were discussed. Risks, benefits, alternatives explained. Risks including but not limited to myocardial infarc tion, aspiration, bleeding, pain, missed lesion, incomplete examination, need for further radiographic studies, colonic perforation, and need for major abdominal surgery were discussed. All questions were answered to their satisfaction, and they are in agreement with this plan. Time Spent With Patient Critical Care time: I spent a total of [] minutes of critical care time on this patient's care today; this time is exclusive of procedural time.
[2021-02-19] MEDS: MIDAZOLAM 5 MG/5 ML VIAL IV (14:36)
[2021-02-19] MEDS: fentaNYL 250 MCG/5 ML INJ IV (14:36)
--- NOTE | 2021-02-19 14:51 | PM.OP.COLON ---
Operative Date/Time/Diagnoses Date of procedure: 02/19/21 Time of procedure: 14:51 Pre-op diagnosis: Diverticulitis Post-op diagnosis: other (Diverticulosis) Procedure & Clinicians Study performed: Colonoscopy Same procedure as scheduled: Yes Indications: Recent uncomplicated episode of diverticulitis Surgeon: Tang Lopez Procedure Notes Procedure in detail: Medications: Conscious sedation using *mg IV midazolam and *mcg IV of fentanyl The history and physical was performed/updated and the patient is ASA class is *. The procedure was discussed in detail with the patient. Potential risks complications including infection, bleeding, missed diagnosis, perforation, need for surgery, and were explained. Their questions were answered and informed consent was obtained. Patient was brought to the procedure room and placed standard monitoring equipment. The patient's vital signs were monitored continuously throughout the entire procedure. Prior to starting time-out was performed. The patient was placed in the left lateral recumbent position. Procedural sedation was administered. Examination began with a thorough inspection of the perianal area there was no evidence of fissures, fistulae, external hemorrhoids or cutaneous malignancy. The colonoscopy scope was then placed into the anal canal and was advanced to the cecum, which was identified by the ileocecal valve, the appendiceal orifice and the confluence of the taenia. The scope was then slowly withdrawn examining colon thoroughly in all directions, irrigating it of any residual stool. FINDINGS 1. Sigmoid diverticulosis without evidence of active inflammation 2. Grade 2 internal hemorrhoids The patient tolerated the procedure well. They will be discharged once criteria are met. The prep was of good/excellent quality. The withdrawl time was7 minutes. The sedation time was 29 minutes. Specimen(s): none sent Complications: none Impression: Normal colonoscopy Post-procedure Recommendations: Colonoscopy in 10 years and High fiber diet Disposition: same day surgery
== END 2021-02-19 15:40 | disposition home or self-care (01) ==
PROVIDERS: PCP Student in an Organized Health Care Education/Training Program; Referring Provider Surgery; Visit Provider Surgery
PROC: 0DJD8ZZ Inspection of Lower Intestinal Tract, Via Natural or Artificial Opening Endoscopic (ICD-10-PCS; CPT 45378; principal; 2021-02-19 14:15)
DX: Z12.11 Encounter for screening for malignant neoplasm of colon (principal); K57.30 Diverticulosis of large intestine without perforation or abscess without bleeding; K64.1 Second degree hemorrhoids
CPT/HCPCS: G0121; 99152; 99153; J2250; J3010

== ENCOUNTER → 2021-09-29 12:42 | Outpatient (CLI) | payer MEDICARE, OTHER, SELFPAY ==
--- NOTE | 2021-09-29 | DI.MRI.S_ITS ---
PROCEDURE: MR SHOULDER LT WO CON INDICATIONS: ROTATOR CUFF TEAR LEFT TECHNIQUE: Noncontrast oblique coronal T2 fast spin echo with fat saturation, oblique sagittal T1 spin echo and T2 fast spin echo with fat saturation, axial T1 spin echo and T2 fast spin echo with fat saturation through the shoulder. COMPARISON: [facility], MR, MR SHOULDER LT WO CON, 04/27/2019, 12:09. FINDINGS: Image quality: Images are mildly degraded by patient motion despite repeat sequences being acquired. Diagnostic information is obtained. Rotator cuff: Postsurgical changes are seen from interval rotator calf tendon repair. There is heterogeneity of the distal supraspinatus and infraspinatus tendons without a large recurrent retracted full-thickness tendon tear seen. The teres minor tendon is intact. There is mild subscapularis tendinosis. No significant rotator cuff muscle atrophy is seen. However, there is stable focal fat signal within the teres minor muscle that may be related to a remote prior intramuscular tear or likely a small intramuscular lipoma. Bones and bursae: No acute trabecular bone injury. Metal artifact in the central humeral head is seen secondary to rotator cuff tendon repair. Cartilage surfaces are not well evaluated due to patient motion. There is mild degenerative spurring in the glenoid rim. Moderate degenerative changes are seen in the acromioclavicular joint with subchondral cystic changes and marginal osteophyte formation. Trace fluid in the subacromial/subdeltoid bursa is normal in the postsurgical setting. No significant glenohumeral effusion. Capsule and soft tissues: Evaluation of the labrum is mildly compromised by patient motion. However, no displaced labral tear is seen. There is mild tendinosis of the intra-articular portion of the proximal biceps long head tendon. Partial effacement of the fat in the rotator interval is noted. There is mild thickening of the inferior glenohumeral ligament. IMPRESSION: 1. Postsurgical changes from prior rotator cuff tendon repair. Heterogeneity of the distal supraspinatus and infraspinatus tendons is seen without a large recurrent full-thickness tear identified. Mild subscapularis tendinosis. 2. Mild tendinosis of the proximal biceps long head tendon. 3. Moderate acromioclavicular osteoarthrosis. 4. Partial effacement of the rotator interval fat and mild thickening of the inferior glenohumeral ligament are nonspecific, especially in the postsurgical setting, but can be seen in the setting of the clinical syndrome of adhesive capsulitis. Dictated by: Tam Soto M.D. on 09/29/2021 at 20:31 Approved by: Tam Soto M.D. on 09/29/2021 at 20:39
== END ==
PROVIDERS: PCP Student in an Organized Health Care Education/Training Program; Referring Provider Orthopaedic Surgery; Visit Provider Orthopaedic Surgery
DX: M75.102 Unspecified rotator cuff tear or rupture of left shoulder, not specified as traumatic (principal); M19.012 Primary osteoarthritis, left shoulder; Z98.890 Other specified postprocedural states
CPT/HCPCS: 73221

== ENCOUNTER → 2022-06-10 10:57 | Outpatient (CLI) | payer MEDICARE, OTHER, SELFPAY ==
--- NOTE | 2022-06-10 | DI.MRI.S_ITS ---
PROCEDURE: MR ELBOW LT W CON INDICATIONS: Strain of muscle, fascia and tendon,left arm TECHNIQUE: Noncontrast coronal proton density fast spin echo and T2 fast spin echo with fat saturation, axial and sagittal T1 spin echo and T2 fast spin echo with fat saturation through the elbow. COMPARISON: None. FINDINGS: Image quality: Excellent. Lateral structures: The lateral ulnar collateral ligament and radial collateral ligament both appear intact. The overlying common extensor tendon demonstrates moderate tendinosis. Medial structures: The ulnar collateral ligament appears intact. The overlying common flexor tendon demonstrates mild tendinosis and low-grade partial tearing. Mild overlying soft tissue edema is present. The ulnar nerve appears normal in size and signal within the cubital tunnel. Anterior structures: The biceps and brachialis tendons both appear intact as they insert onto the proximal radius and ulna, respectively. No bicipitoradial bursal fluid. The median and radial neurovascular bundles appear normal; no focal muscle atrophy to suggest nerve impingement. Posterior structures: The conjoint triceps tendon from the long and lateral heads appears intact. The medial head of the triceps tendon also appears normal, with direct muscle insertion onto the olecranon. Mild soft tissue edema is seen overlying the olecranon. Bone and cartilage: A prominent posterior olecranon enthesophyte is seen without internal edema. No bone marrow contusions or fractures. No osteochondral injuries. IMPRESSION: 1. Low-grade partial tearing of the common flexor tendon at the origin superimposed on mild chronic tendinosis. 2. Moderate common extensor tendinosis. 1. Approved by: Tam Soto M.D. on 06/10/2022 at 13:22
== END ==
PROVIDERS: PCP Student in an Organized Health Care Education/Training Program; Referring Provider Orthopaedic Surgery; Visit Provider Orthopaedic Surgery
DX: S46.212A Strain of muscle, fascia and tendon of other parts of biceps, left arm, initial encounter (principal); X58.XXXA Exposure to other specified factors, initial encounter
CPT/HCPCS: 73221

== ENCOUNTER 2023-02-06 19:54 | Emergency (ER) | payer MEDICARE, OTHER, SELFPAY ==
[2023-02-06 19:59] VITALS: BP 135/69; PULSE 75; RESP 16; TEMP 36.7; O2SAT 97; BMI 28.8
--- NOTE | 2023-02-06 21:45 | ED_ITS ---
HPI - Nausea/Vomiting/Diarrhea General Chief complaint: Nausea/Vomiting/Diarrhea Stated complaint: hemorrhoids/ 4wks Diarrhea Time Seen by Provider: 02/06/23 21:36 Source: patient Mode of arrival: Ambulatory History of Present Illness HPI Narrative: Patient is a 73 old male presents today with severe rectal pain. He reports he has a history of hemorrhoids he feels like these are the worst hemorrhoids he is ever had. He can not sit. He says that he is had diarrhea ongoing for the last 4 weeks says its very raw. He says he went to his PCP he had stool studies done he negative he had some blood work he does not know the results of yet. He is not had nausea vomiting fever or chills. He does not really have any abdominal pain. He was tired of diarrhea and took Imodium today. He says that he is had hemorrhoids previously he tried some Anusol suppositories he says it did not really work he has been soaking in a hot tub also not helping. He is not had any bleeding but feels like he might have a thrombosed hemorrhoid which he is had many years ago. He is pacing the room very uncomfortable. No chest pain fever or chills Related Data Home Medications Medication Instructions Recorded Confirmed MULTIVITAMIN (Multivitamin 1 cap PO EVERY DAY ##0 02/06/10 02/19/21 -) Simvastatin (Zocor) 20 mg PO HS ##0 02/06/10 Ascorbic Acid/Bioflavonoid 1 tab PO QDAY ##0 10/23/10 02/19/21 (#VITAMIN C) [VITAMIN E] 1 tab PO QDAY ##0 10/23/10 allopurinol 300 mg tablet 300 mg PO QDAY #30 tabs 10/22/15 02/19/21 diphenhydramine 25 1 tab PO HSP PRN Insomnia #0 tabs 10/22/15 02/19/21 mg-acetaminophen 500 mg tablet (Tylenol PM Extra Strength) docusate sodium 250 mg capsule 250 mg PO BID #0 caps 10/22/15 02/19/21 hydrochlorothiazide 25 mg tablet 25 mg PO QDAY #0 tabs 10/22/15 02/19/21 ibuprofen 800 mg tablet 800 mg PO PRN PRN Pain (Scale 10/22/15 02/19/21 Score 1-3) ##0 Previous Rx's Medication Instructions Recorded hydrocodone 5 mg-acetaminophen 325 1 tab PO Q6H PRN pain #10 tabs 02/06/23 mg tablet hydrocortisone acetate 25 mg 25 mg [place] BID PRN hemorrhoids #24 ea 02/06/23 rectal suppository (Anusol-HC) lidocaine 5 % topical gel 2 ea topical Q4HR PRN pain #30 02/06/23 (Topicaine) grams Allergies Allergy/AdvReac Type Severity Reaction Status Date / Time amlodipine AdvReac Cough Verified 02/06/23 19:58 Patient History Surgical History History of knee replacement Social History household members: spouse Smoking Status: Former smoker Smoking Status: Former smoker tobacco type: cigarettes alcohol intake frequency: 0-2 drinks per day Substance Use Type: does not use Exam Initial Vital Signs Initial Vital Signs: Vital Signs Temperature 98.0 F 02/06/23 19:59 Pulse Rate 75 02/06/23 19:59 Respiratory Rate 16 02/06/23 19:59 Blood Pressure 135/69 02/06/23 19:59 Pulse Oximetry 97 02/06/23 19:59 Oxygen Delivery Method Room Air 02/06/23 19:59 GENERAL: Alert 73-year-old male appears uncomfortable pacing in HEAD: Atraumatic. Normocephalic. Neck supple EYES: Pupils equal round and reactive. Extraocular motions intact CARDIOVASCULAR: Regular rate and rhythm without murmurs, gallops, or rubs. RESPIRATORY: Clear to auscultation. Breath sounds equal bilaterally. No wheezes, rales, or rhonchi. GASTROINTESTINAL: Abdomen soft, non-tender, nondistended. RECTAL: No external hemorrhoids present at all very minimal skin breakdown extremely tender to touch in the anus unable to insert finger due to severe pain. Suspect internal hemorrhoids. EXTREMITIES: No edema or joint tenderness. NEURO: AOx3. SKIN: No rash or erythema of visible areas Course Orders Ordered: ED Orders 02/06/23 21:54 XR abdomen min 2V Stat Discontinued Medications Hydrocodone Bitart/Acetaminophen (Hydrocodone/Acet 5/325 Tablet) 1 tab PO NOW ONE Stop: 02/06/23 21:55 Last Admin: 02/06/23 22:31 Dose: 1 tab Documented By: DANIEL Hydrocodone Bitart/Acetaminophen (Hydrocodone/Acet 5/325 Prepack) 1 bottle MISC DIRECTED ONE Stop: 02/06/23 23:00 Last Admin: 02/06/23 23:03 Dose: 1 bottle Documented By: DANIEL Hydrocortisone (Hydrocortisone 25 Mg Supp) 25 mg AK NOW ONE Stop: 02/06/23 21:51 Last Admin: 02/06/23 22:35 Dose: Not Given Documented By: DANIEL Hydrocortisone/Pramoxine (Hc/Pramoxine 10gm Foam) 1 applic AK NOW ONE Stop: 02/06/23 21:46 Last Admin: 02/06/23 22:35 Dose: Not Given Documented By: DANIEL Lidocaine HCl (Lidocaine 2% (Glydo) 6 Ml Gel) 6 ml TOP NOW ONE Stop: 02/06/23 21:46 Last Admin: 02/06/23 21:56 Dose: 6 ml Documented By: DANIEL Vital Signs Vital signs: Vital Signs - 8 hr 02/06/23 19:59 Temperature 98.0 F Pulse Rate 75 Respiratory Rate 16 Blood Pressure 135/69 Pulse Oximetry 97 Oxygen Delivery Method Room Air MDM - Nausea/Vomiting/Diarrhea Imaging Data Abdominal x-ray: Radiologist's Impression: PROCEDURE: XR ABDOMEN MIN 2V INDICATIONS: rectal pain TECHNIQUE: 2 views of the abdomen were acquired. COMPARISON: None. FINDINGS: Surgical changes and devices: None. Bowel: No pneumoperitoneum. The bowel gas pattern is normal. Moderate right abdominal stool. Soft tissues: No masses; visualized solid organ contours appear normal in size. No suspicious abdominal calcifications. Bones: No suspicious bony abnormalities. Degenerative changes are seen in the included spine. IMPRESSION: Non-obstructive bowel gas pattern. No pneumoperitoneum. Approved by: Tam Soto M.D. on 02/06/2023 at 22:17 MDM Narrative Medical decision making narrative: Patient is 73-year-old male who presents today with increasing rectal pain over last 4 days. He feels like he can not sit. He previously was having lots of diarrhea took Imodium today which did slow down his diarrhea. He was very uncomfortable he received lidocaine rectally which helped a lot. I was able to do an exam there is a lot of swelling concern for internal hemorrhoids no e xternal hemorrhoids on exam. X-ray does not show any evidence of constipation or other abnormality. Patient overall appears well abdomen is soft no need for further blood work or evaluation. We discussed Sitz baths hydrocortisone suppositories and supportive care. He reports that he is actually had prolapse from pushing so hard. He is afebrile vitals are stable. Possible prostatitis. We discussed treating hemorrhoids and pain supportively however if fever develops or he is having increasing pain to return for further evaluation. We discussed follow-up with surgery for colonoscopy. Sounds as though he is being followed by PCP for ongoing diarrhea. Discharge Plan Departure Patient Disposition: Home Clinical Impression: Hemorrhoids, internal Instructions: Hemorrhoids, Hemorrhoid Banding Activity Restrictions/Additional Instructions: *You have been diagnosed with presumed internal hemorrhoids *What to do: At this time recommend Epsom salt baths as, do not get constipated take a stool softener daily as needed. Stop taking stool softener if you begin diarrhea again. *Continue to take medications as directed--> DOD Lidocaine 2-3 mL every 4 hours if needed for severe pain, use special syringe do not insert far Hydrocortisone suppository 2-4 suppositories daily for 2 weeks [place] 1 tablet every 6 hours only if needed for severe pain this can cause constipation *Follow up with your primary care provider in 2-3 days or call [phone] *Return to ER if you should have increasing pain fever chills or any new, worsening or concerning symptoms CONTROLLED SUBSTANCE DISCHARGE (Narcotoic/benzodiazepine/Flexeril/Phenergan) 1. You have been prescribed narcotic medications, it does have acetaminophen/Tylenol/paracetamol in it, DO NOT TAKE MORE THAN 4,00mg in 24 hours of Tylenol. TRAMADOL DOES NOT CONTAIN TYLENOL 2. Please understand that we cannot provide further refills of narcotics, benzodiazepines or controlled substances through the ED and her pain management will need to be through your provider. 3. While on these medications you cannot drive or operate heavy machinery. 4. You cannot sign legal documents or perform any duties such as this. 5. As long as you're taking opiate pain medications he should also be taking a stool softener such as Colace, Dulcolax, MiraLAX or prune juice, to help avoid constipation. Prescriptions: New hydrocortisone acetate [Anusol-HC] 25 mg suppository 25 mg AK BID PRN (Reason: hemorrhoids) Qty: 24 0RF hydrocodone-acetaminophen 5-325 mg tablet 1 tab PO Q6H PRN (Reason: pain) Qty: 10 0RF Topicaine 5 % gel 2 ea topical Q4HR PRN (Reason: pain) Qty: 30 0RF No Action MULTIVITAMIN (Multivitamin -) 1 cap PO EVERY DAY Qty: 0 Simvastatin (Zocor) 20 mg PO HS Qty: 0 Ascorbic Acid/Bioflavonoid (#VITAMIN C) 1 tab PO QDAY Qty: 0 [VITAMIN E] 1 tab PO QDAY Qty: 0 ibuprofen 800 MG tablet 800 mg PO PRN PRN (Reason: Pain (Scale Score 1-3)) Qty: 0 allopurinol 300 MG tablet 300 mg PO QDAY Qty: 30 docusate sodium 250 MG capsule 250 mg PO BID Qty: 0 diphenhydramine-acetaminophen [Tylenol PM Extra Strength] 500 MG/25 MG tablet 1 tab PO HSP PRN (Reason: Insomnia) Qty: 0 hydrochlorothiazide 25 MG tablet 25 mg PO QDAY Qty: 0 Referrals: Kacie Andrade MD [Primary Care Provider] - Stand Alone Forms: Patient Portal/API
--- NOTE | 2023-02-06 21:54 | DI.RAD.S_ITS ---
PROCEDURE: XR ABDOMEN MIN 2V INDICATIONS: rectal pain TECHNIQUE: 2 views of the abdomen were acquired. COMPARISON: None. FINDINGS: Surgical changes and devices: None. Bowel: No pneumoperitoneum. The bowel gas pattern is normal. Moderate right abdominal stool. Soft tissues: No masses; visualized solid organ contours appear normal in size. No suspicious abdominal calcifications. Bones: No suspicious bony abnormalities. Degenerative changes are seen in the included spine. IMPRESSION: Non-obstructive bowel gas pattern. No pneumoperitoneum. Approved by: Tam Soto M.D. on 02/06/2023 at 22:17
[2023-02-06] MEDS: LIDOCAINE 2% (GLYDO) 6 ML GEL TOP (21:56)
[2023-02-06] MEDS: HYDROCODONE/ACET 5/325 TABLET 1 TAB PO (22:31)
[2023-02-06] MEDS: HYDROCODONE/ACET 5/325 PREPACK 1 BOTTLE MISC (23:03)
== END 2023-02-06 23:07 | disposition home or self-care (01) ==
PROVIDERS: Emergency Provider Emergency Medicine; PCP Student in an Organized Health Care Education/Training Program
DX: K64.8 Other hemorrhoids (principal)
CPT/HCPCS: 74019; 99283; 99284

== ENCOUNTER → 2024-12-14 11:04 | Outpatient (CLI) | payer MEDICARE, OTHER, SELFPAY ==
--- NOTE | 2024-12-14 11:05 | DI.US.S_ITS ---
PROCEDURE: US ABDOMEN LIMITED INDICATIONS: ruq ultrasound; pain TECHNIQUE: Real-time scanning was performed of the abdominal and retroperitoneal organs, with image documentation. COMPARISON: None. FINDINGS: Liver: Liver is normal in size and homogeneous in echotexture. Gallbladder: No gallstones. No wall thickening considering that the patient is not NPO. No pericholecystic edema. Negative sonographic Anderson's sign. Biliary ducts: Intrahepatic bile ducts are non-dilated. Extrahepatic bile duct caliber measures 2.0 mm. Normal is 6-7 mm or less in diameter, or 10 mm or less post-cholecystectomy. Pancreas: Visualized portions of the pancreas are sonographically normal. Miscellaneous: No free abdominal fluid. IMPRESSION: Source of right upper quadrant pain is not seen. Mild contraction of the gallbladder. Dictated by: Kody Butt M.D. on 12/14/2024 at 13:42 Approved by: Kody Butt M.D. on 12/14/2024 at 13:43
== END ==
LOC: US 11:04
DX: R10.9 Unspecified abdominal pain (principal)
CPT/HCPCS: 76705

== ENCOUNTER → 2024-12-19 10:48 | Outpatient (CLI) | payer MEDICARE, OTHER, SELFPAY ==
--- NOTE | 2024-12-19 10:49 | DI.US.S_ITS ---
PROCEDURE: US RENAL COMPLETE INDICATIONS: disorder of kidney and ureter TECHNIQUE: Real-time scanning was performed of the kidneys and bladder, with image documentation. COMPARISON: None. FINDINGS: Kidneys: Kidneys are normal in size. Right kidney measures 10.9 cm long; left kidney measures 12.1 cm long. Renal cortical echotexture is normal. No hydronephrosis or nephrolithiasis. No suspicious solid mass lesions. Bilateral simple renal cysts. Bladder: Patient voided prior to exam. Bladder volumes were not calculated. Limited prevoid images demonstrate no intraluminal masses or stones. On pre-void images, no ureteral jets are noted with color Doppler interrogation. (Of note, ureteral jets may not be detectable in up to 25% of cases due to insufficient differences in specific gravity between ureteral and bladder urine). Miscellaneous: No free pelvic fluid. IMPRESSION: No nephrolithiasis or hydronephrosis. Approved by: Bertha Schwartz M.D.,Ph.D. on 12/19/2024 at 17:38
== END ==
LOC: US 10:49
DX: N28.9 Disorder of kidney and ureter, unspecified (principal)
CPT/HCPCS: 76770